=== PATIENT | male | born 1950 | race Caucasian/White ===

== ENCOUNTER 2017-02-07 09:58 | Emergency (ER) | payer OTHER ==
[2017-02-07 10:50] LABS: BASOPHILS 1.4 % (0.0-2.0); EOSINOPHILS 10.4 % (0-7); HEMATOCRIT 41.1 % (42.0-54.0); IMMATURE GRANULOCYTES 0.1 % (0-5); LYMPHOCYTES 35.8 % (15-50); MCH 32.5 pg (26.0-34.0); MCHC 34.1 g/dL (31.0-37.0); MCV 95.4 fL (80.0-100.0); MONOCYTES 9.2 % (2-11); NEUTROPHILS 43.1 % (40-80); PLATELET COUNT 220 10x3/uL (130-400); RBC 4.31 10x6/uL (4.20-6.10); RDW 13.4 % (11.5-14.5); WBC 7.1 10x3/uL (4.8-10.8)
[2017-02-07 11:05] LABS: ALBUMIN 4.2 g/dL (3.4-5.0); ANION GAP 16.1 mmol/L (8-16); BILIRUBIN - TOTAL 0.4 mg/dL (0.2-1.3); CALCIUM 9.6 mg/dL (8.5-10.1); CARBON DIOXIDE 25.3 mmol/L (21.0-32.0); CREATININE - SERUM 1.3 mg/dL (0.6-1.3); POTASSIUM - SERUM 4.4 mmol/L (3.5-5.1); PROTEIN - SERUM 7.9 g/dL (6.4-8.2)
[2017-02-07 11:12] LABS: MAGNESIUM - SERUM 1.9 mg/dL (1.8-2.4)
[2017-02-07 11:51] LABS: APPEARANCE CLEAR (CLEAR); BILIRUBIN NEGATIVE (NEGATIVE); COLOR YELLOW (YELLOW); GLUCOSE NEGATIVE (NEGATIVE); KETONE NEGATIVE (NEGATIVE); LEUKOCYTE ESTERASE NEGATIVE (NEGATIVE); NITRITE NEGATIVE (NEGATIVE); PROTEIN NEGATIVE (NEGATIVE); UROBILINOGEN NORMAL (NORMAL)
== END 2017-02-07 12:50 | disposition home or self-care (01) ==
LOC: D.ER 09:58
PROVIDERS: Emergency Medicine
DX: R53.83 Other fatigue (principal); I10 Essential (primary) hypertension; E11.9 Type 2 diabetes mellitus without complications; E78.5 Hyperlipidemia, unspecified; G25.81 Restless legs syndrome; R00.0 Tachycardia, unspecified

== ENCOUNTER → 2017-03-29 08:24 | Outpatient (CLI) | payer OTHER ==
[2017-03-29 09:12] LABS: CREATININE - SERUM 1.3 mg/dL (0.6-1.3)
== END | disposition home or self-care (01) ==
LOC: D.LAB 08:15 → D.MRI 08:30
PROVIDERS: Family Medicine
DX: E29.1 Testicular hypofunction (principal)

== ENCOUNTER → 2018-05-19 15:35 | Outpatient (CLI) | payer BC ==
[2018-05-19 16:14] LABS: ANION GAP 13.7 mmol/L (8-16); CALCIUM 9.6 mg/dL (8.5-10.1); CARBON DIOXIDE 27.7 mmol/L (21.0-32.0); CREATININE - SERUM 1.8 mg/dL (0.6-1.3); POTASSIUM - SERUM 3.4 mmol/L (3.5-5.1)
== END | disposition home or self-care (01) ==
LOC: D.LAB 15:35 → D.MRI 16:00
PROVIDERS: Family Medicine
DX: R26.89 Other abnormalities of gait and mobility (principal); H81.43 Vertigo of central origin, bilateral

== ENCOUNTER → 2018-06-10 11:50 | Outpatient (CLI) | payer BC | END | disposition home or self-care (01) | LOC: D.CT 11:50 | DX: G45.0 Vertebro-basilar artery syndrome (principal); I67.2 Cerebral atherosclerosis ==

== ENCOUNTER → 2019-05-01 10:41 | Outpatient (CLI) | payer BC | END | disposition home or self-care (01) | LOC: D.LAB 10:41 | PROVIDERS: ATTEND Family Medicine | DX: R19.7 Diarrhea, unspecified (principal) ==

== ENCOUNTER → 2019-10-09 09:38 | Outpatient (CLI) | payer BC ==
--- NOTE | 2019-10-13 15:28 | ST ---
PATIENT:DEL ORELLANA MEDICAL RECORD: [id number] SEX: M LOCATION:[facility] ORDER #: ADMISSION DATE: 10/09/19 AGE OF PATIENT: 69 REFERRING PHYSICIAN: INTERPRETING PHYSICIAN: KAYLA EPPERSON MD DATE OF SERVICE: 10/09/2019 INDICATION: Shortness of breath. He was exercised on standard Yoel protocol for 6 minutes 40 seconds, terminated due to overall fatigue, achieving greater than 100% max target heart rate response with no EKG changes, no dysrhythmias, no anginal chest discomfort. OVERALL IMPRESSION: Negative for inducible ischemia at adequate cardiac workload. TRANSINT:[id number] Voice Confirmation ID: [id number] DOCUMENT ID: [id number] KAYLA EPPERSON MD at 1528 CC: ADRIANNE DICKSON [id number] DICTATION DATE: 10/11/19 1246 SILVERING APPLICATOR: 10/11/19 2303 DEP CLI 10/09/19 [id number] [place] [address]
== END | disposition home or self-care (01) ==
LOC: D.HCCARDIO 09:38
PROVIDERS: ATTEND Internal Medicine Interventional Cardiology
DX: R06.09 Other forms of dyspnea (principal)

== ENCOUNTER → 2020-02-01 07:28 | Outpatient (CLI) | payer BC | END | disposition home or self-care (01) | LOC: D.NM 07:28 | PROVIDERS: ATTEND Family Medicine | DX: E05.90 Thyrotoxicosis, unspecified without thyrotoxic crisis or storm (principal) ==